=== PATIENT | female | born 2000 | race African-American/Black ===

== ENCOUNTER 2022-07-22 12:51 | Inpatient (IN) | payer MEDICAID ==
[~2022-07-22] VITALS: Ht 167.6 cm; Wt 117.9 kg
[2022-07-22] MEDS ORDERED: ACETAMINOPHEN 325MG TABLET PO ONE (16:00)
[2022-07-22] MEDS ORDERED: IBUPROFEN 600MG TABLET PO ONE (16:00)
[2022-07-22] MEDS ORDERED: CLINDAMYCIN 600 MG in DEXTROSE 5% WATER 50 ML IV ONE (18:00)
[2022-07-22 18:34] LABS: BASOPHILS % 0.7 % (0.0-2.0); EOSINOPHILS % 0.5 % (0.0-5.0); HEMOGLOBIN. 12.7 g/dL (12.0-16.0); LYMPHOCYTES % 24.3 % (20.0-50.0); MEAN CORPUSCULAR HEMOGLOBIN 27.6 pg (28.0-32.0); MEAN CORPUSCULAR VOLUME 82.7 fL (81.0-99.0); MONOCYTES % 5.8 % (2.0-8.0); NEUTROPHILS % 68.7 % (40.0-76.0); PLATELET 379 x1000/uL (130-400); RED CELL DISTRIBUTION WIDTH 14.6 % (11.6-14.6)
[2022-07-22] MEDS: CLINDAMYCIN 600MG PREMIX 50 ML IV NR ×2 (18:44→20:55)
[2022-07-22 18:45] LABS: PROTHROMBIN TIME 10.8 sec (9.6-11.0)
[2022-07-22] MEDS ORDERED: DOCUSATE SODIUM 100MG CAPSULE PO PRN (20:00)
[2022-07-22] MEDS ORDERED: MAGNESIUM/ALUMINUM HYDROXIDE/SIMETHICONE 30ML UDC PO PRN (20:00)
[2022-07-22] MEDS ORDERED: GUAIFENESIN 200MG/10ML SUGAR FREE UDC PO PRN (20:00)
[2022-07-22] MEDS ORDERED: ACETAMINOPHEN 325MG TABLET PO PRN ×2 (20:00)
[2022-07-22] MEDS ORDERED: CLONIDINE 0.1MG TABLET PO PRN (20:00)
[2022-07-22] MEDS ORDERED: IPRATROPIUM/ALBUTEROL 0.5-3(2.5)MG/3ML NEB HHN PRN (20:00)
[2022-07-22] MEDS ORDERED: ONDANSETRON HCL 4MG/2ML INJ IV PRN (20:00)
[2022-07-22] MEDS ORDERED: HYDROCODONE/ACETAMINOPHEN 5/325MG TABLET PO PRN (20:00)
[2022-07-22] MEDS ORDERED: NALOXONE HCL 0.4MG/ML VIAL IV PRN ×2 (20:15→23:45)
[2022-07-22] MEDS ORDERED: IOHEXOL-300 100 ML BOTTLE ONE (20:52)
[2022-07-22 22:23] LABS: CHLORIDE 109 mEq/L (98-107)
[2022-07-23 01:59] VITALS: BP 110/66
[2022-07-23] MEDS: HYDROCODONE/ACETAMINOPHEN 5/325MG TABLET PO PRN ×2 (04:40→13:37)
[2022-07-23 08:00] VITALS: BP 108/63
[2022-07-23] MEDS ORDERED: FAMOTIDINE 20MG TABLET PO SCH (09:00)
[2022-07-23] MEDS ORDERED: ENOXAPARIN 40MG/0.4ML SYR SUBCUT SCH (09:00)
[2022-07-23 09:26] LABS: BASOPHILS % 0.7 % (0.0-2.0); EOSINOPHILS % 0.8 % (0.0-5.0); HEMATOCRIT. 35.7 % (36.0-48.0); LYMPHOCYTES % 33.7 % (20.0-50.0); MEAN CORPUSCULAR HEMOGLOBIN 27.5 pg (28.0-32.0); MEAN CORPUSCULAR VOLUME 81.8 fL (81.0-99.0); MEAN PLATELET VOLUME 9.3 fl (7.4-10.4); MONOCYTES % 8.4 % (2.0-8.0); NEUTROPHILS % 56.4 % (40.0-76.0); PLATELET 342 x1000/uL (130-400); RED BLOOD CELL COUNT 4.36 mill/uL (4.2-5.4); RED CELL DISTRIBUTION WIDTH 14.6 % (11.6-14.6)
[2022-07-23] MEDS ORDERED: IBUPROFEN 400MG TABLET PO PRN (11:30)
[2022-07-23 12:00] VITALS: BP 116/60
[2022-07-23] MEDS ORDERED: [UNRECOGNIZED DRUG - CODE] TP (15:08)
[2022-07-23] MEDS ORDERED: DOXY100C5 MT (15:08)
[2022-07-23 17:09] VITALS: BP 116/60
[2022-07-23 19:29] LABS: *AMPHETAMINES SCREEN URINE NEGATIVE (NEGATIVE); *BARBITURATES SCREEN URINE NEGATIVE (NEGATIVE); *BENZODIAZEPINES SCREEN URINE NEGATIVE (NEGATIVE); *COCAINE SCREEN URINE NEGATIVE (NEGATIVE); CANNABINOID URINE SCREEN NEGATIVE (NEGATIVE); METHADONE URINE SCREEN NEGATIVE (NEGATIVE); OPIATES URINE SCREEN PRESUMTIVE POSITIVE (NEGATIVE); PHENCYCLIDINE URINE SCREEN NEGATIVE (NEGATIVE)
[2022-07-23 20:58] LABS: CHLORIDE 109 mEq/L (98-107)
[2022-07-23 21:28] LABS: PHOSPHORUS 2.9 mg/dL (2.5-4.9); T4 FREE 0.92 ng/dL (0.76-1.46)
[2022-07-25 08:09] LABS: HIV SCREEN 4G Non Reactive (Non Reactive)
== END 2022-07-23 17:36 | disposition home or self-care (01) | DRG 115 ==
LOC: ER 13:10 → MICUSO 19:49 → SUPCPDRO 21:49 → 6EST 07-23 00:23
PROVIDERS: ADMIT Internal Medicine; ATTEND Internal Medicine
DX: H60.11 Cellulitis of right external ear (principal); R59.0 Localized enlarged lymph nodes; Z20.822 Contact with and (suspected) exposure to COVID-19; R73.9 Hyperglycemia, unspecified; S69.90XA Unspecified injury of unspecified wrist, hand and finger(s), initial encounter; Z98.891 History of uterine scar from previous surgery; Z88.8 Allergy status to other drugs, medicaments and biological substances; X58.XXXA Exposure to other specified factors, initial encounter; Y93.89 Activity, other specified; Y92.89 Other specified places as the place of occurrence of the external cause; Y99.8 Other external cause status
CPT/HCPCS: 36415; 70481; 71045; 80053; 80305; 83036; 83735; 84100; 84439; 84443; 85025; 85651; 86592; 86593; 86780; 87070; 87389; 87426; 87430; 93005; 99285; C9803; J1650; J3490; J7060; Q9967

== ENCOUNTER 2023-12-05 12:58 | Emergency (ER) | payer MEDICAID ==
[~2023-12-05] VITALS: Ht 167.6 cm; Wt 131.0 kg
[~2023-12-05 12:58] MED LIST: DOXY100C5 MT; [UNRECOGNIZED DRUG - CODE] TP
[2023-12-05 13:09] VITALS: O2SAT 98
[2023-12-05] MEDS ORDERED: AZIT250T12 MT (14:45)
[2023-12-05] MEDS: KETOROLAC 15MG/ML VIAL IM ONE (15:00)
[2023-12-05 16:00] VITALS: BP 138/82; PULSE 83; RESP 19; TEMP 98
== END 2023-12-05 16:35 | disposition home or self-care (01) ==
LOC: ER 12:58
DX: J18.9 Pneumonia, unspecified organism (principal); Z98.890 Other specified postprocedural states
CPT/HCPCS: 81025; 71045; 96372; 99283; J1885; Z7610

== ENCOUNTER 2024-08-31 15:04 | Emergency (ER) | payer MEDICAID ==
[~2024-08-31] VITALS: Ht 172.7 cm; Wt 105.0 kg
[~2024-08-31 15:04] MED LIST changes: +AZIT250T12 MT
[2024-08-31 15:18] VITALS: O2SAT 99
[2024-08-31 19:16] LABS: BASOPHILS % 0.5 % (0.0-2.0); EOSINOPHILS % 0.6 % (0.0-5.0); HEMATOCRIT. 38.6 % (36.0-48.0); HEMOGLOBIN. 12.7 g/dL (12.0-16.0); LYMPHOCYTES % 28.3 % (20.0-50.0); MEAN CORPUSCULAR HEMOGLOBIN 28.3 pg (28.0-32.0); MEAN CORPUSCULAR HGB CONC 32.9 g/dL (31.0-37.0); MEAN CORPUSCULAR VOLUME 86.1 fL (81.0-99.0); MEAN PLATELET VOLUME 9.2 fl (7.4-10.4); MONOCYTES % 7.3 % (2.0-8.0); NEUTROPHILS % 63.3 % (40.0-76.0); PLATELET 334 x1000/uL (130-400); RED BLOOD CELL COUNT 4.48 mill/uL (4.2-5.4); RED CELL DISTRIBUTION WIDTH 14.1 % (11.6-14.6); WHITE BLOOD COUNT 6.3 x1000/uL (4.5-11.0)
[2024-08-31 19:20] LABS: CHLORIDE 107 mEq/L (98-107); POTASSIUM 3.7 mEq/L (3.5-5.1); SODIUM 142 mEq/L (136-145)
[2024-08-31 19:21] LABS: CARBON DIOXIDE 27 mEq/L (21-32)
[2024-08-31 19:22] LABS: CALCIUM 9.3 mg/dL (8.7-10.4)
[2024-08-31 19:26] LABS: CREATININE 0.9 mg/dL (0.6-1.0); GLUCOSE 93 mg/dL (70-105); UREA NITROGEN BLOOD 6 mg/dL (9-23)
[2024-08-31 19:35] LABS: B-HCG QUANTITATIVE < 1 mIU/mL (<3)
[2024-08-31 20:09] LABS: CLARITY URINE CLEAR (CLEAR); COLOR URINE YELLOW (YELLOW); GLUCOSE URINE NEGATIVE (NEGATIVE); KETONES URINE NEGATIVE (NEGATIVE); LEUKOCYTE ESTERASE URINE TRACE (NEGATIVE); NITRITE URINE NEGATIVE (NEGATIVE); OCCULT BLOOD URINE NEGATIVE (NEGATIVE); PROTEIN URINE NEGATIVE (NEGATIVE); SPECIFIC GRAVITY URINE 1.013 (1.005-1.030); UROBILINOGEN URINE 0.2 E.U./dL (0.2-1.0)
[2024-08-31 20:21] LABS: BACTERIA URINE NONE SEEN; RBC URINE 0-2 /hpf (0-2); SQUAMOUS EPITHELIAL CELL URINE RARE /lpf (RARE/1+)
[2024-08-31 21:00] VITALS: BP 113/72; PULSE 72; RESP 20; TEMP 36.83628; O2SAT 98
== END 2024-08-31 15:15 | disposition home or self-care (01) ==
LOC: ER 15:04
DX: N93.9 Abnormal uterine and vaginal bleeding, unspecified (principal); Z98.890 Other specified postprocedural states; Z91.040 Latex allergy status; Z91.018 Allergy to other foods
CPT/HCPCS: 36415; 76830; 76856; 80048; 81003; 81025; 84702; 85025; 86850; 86900; 99284

== ENCOUNTER 2025-05-18 15:27 | Emergency (ER) | payer MEDICAID ==
[~2025-05-18] VITALS: Ht 170.2 cm; Wt 114.0 kg
[2025-05-18 15:47] VITALS: O2SAT 99
[2025-05-18 15:54] VITALS: TEMP 36.9
[2025-05-18] MEDS ORDERED: ACETAMINOPHEN 500MG TABLET PO ONE (17:15)
[2025-05-18 18:47] LABS: BASOPHILS % 1.0 % (0.0-2.0); EOSINOPHILS % 1.1 % (0.0-5.0); HEMATOCRIT. 35.9 % (36.0-48.0); HEMOGLOBIN. 11.8 g/dL (12.0-16.0); LYMPHOCYTES % 36.0 % (20.0-50.0); MEAN PLATELET VOLUME 9.4 fl (7.4-10.4); MONOCYTES % 8.5 % (2.0-8.0); NEUTROPHILS % 53.4 % (40.0-76.0); PLATELET 268 x1000/uL (130-400); RED BLOOD CELL COUNT 4.26 mill/uL (4.2-5.4); RED CELL DISTRIBUTION WIDTH 14.3 % (11.6-14.6)
[2025-05-18 18:53] LABS: HCG SCREEN NEGATIVE
[2025-05-18 19:01] LABS: CREATININE 1.0 mg/dL (0.6-1.0)
[2025-05-18 19:02] LABS: UREA NITROGEN BLOOD 6 mg/dL (9-23)
[2025-05-18 19:03] LABS: ASPARTATE AMINOTRANSFERASE 15 IU/L (<34)
[2025-05-18 19:04] LABS: BILIRUBIN DIRECT < 0.1 mg/dL (<=3.0); BILIRUBIN TOTAL 0.3 mg/dL (0.1-1.0); PROTEIN TOTAL 6.4 g/dL (6.0-8.3)
[2025-05-18] MEDS: ACETAMINOPHEN 500MG TABLET PO NR (20:48)
[2025-05-18 21:01] VITALS: BP 123/75; PULSE 75; RESP 14; O2SAT 99
[2025-05-18] MEDS ORDERED: AMOX1TAB16 MT (21:04)
[2025-05-18] MEDS ORDERED: P20 MT (21:04)
[2025-05-18] MEDS ORDERED: DEXAMETHASONE 4MG TABLET PO ONE (21:15)
[2025-05-18] MEDS ORDERED: AMOXICILLIN/POTASSIUM CLAVULANATE 875/125MG TAB PO ONE (21:15)
[2025-05-18] MEDS ORDERED: IOHEXOL-300 100 ML BOTTLE ONE (23:12)
== END 2025-05-18 21:31 | disposition home or self-care (01) ==
LOC: ER 15:27 → CMPBEDREQ 05-19 07:21
DX: J03.90 Acute tonsillitis, unspecified (principal); L03.90 Cellulitis, unspecified; Z98.890 Other specified postprocedural states; Z91.040 Latex allergy status
CPT/HCPCS: 80076; 80048; 84703; 85025; 36415; 70487; 70491; 99285; Q9967; Z7610; A4606

== ENCOUNTER 2025-07-10 18:27 | Emergency (ER) | payer MEDICAID ==
[~2025-07-10] VITALS: Ht 172.7 cm; Wt 105.0 kg
[~2025-07-10 18:27] MED LIST changes: +AMOX1TAB16 MT; -AZIT250T12 MT; -DOXY100C5 MT; +P20 MT; -[UNRECOGNIZED DRUG - CODE] TP
[2025-07-10 18:35] VITALS: O2SAT 99
[2025-07-10] MEDS ORDERED: METH-653 MT (20:16)
[2025-07-10] MEDS ORDERED: LIDO700A30 TP (20:16)
[2025-07-10] MEDS ORDERED: IBUP-1455 MT (20:16)
[2025-07-10 20:35] VITALS: BP 115/77; PULSE 85; RESP 18; TEMP 37; O2SAT 99
== END 2025-07-10 20:35 | disposition home or self-care (01) ==
LOC: ER 18:27
DX: S13.4XXA Sprain of ligaments of cervical spine, initial encounter (principal); Z91.040 Latex allergy status; Z91.018 Allergy to other foods; X58.XXXA Exposure to other specified factors, initial encounter; Y93.89 Activity, other specified; Y92.89 Other specified places as the place of occurrence of the external cause; Y99.8 Other external cause status
CPT/HCPCS: 99283

== ENCOUNTER 2025-07-15 04:01 | Emergency (ER) | payer MEDICAID ==
[~2025-07-15] VITALS: Ht 167.6 cm; Wt 135.7 kg
[~2025-07-15 04:01] MED LIST changes: +IBUP-1455 MT; +LIDO700A30 TP; +METH-653 MT
[2025-07-15 04:14] VITALS: TEMP 36.7; O2SAT 99
[2025-07-15 04:23] VITALS: BP 128/84; PULSE 73; RESP 18; O2SAT 99
[2025-07-15 05:09] VITALS: TEMP 98.1
[2025-07-15] MEDS: ACETAMINOPHEN 500MG TABLET PO ONE (05:09)
== END 2025-07-15 08:00 | disposition left against medical advice (07) ==
LOC: ER 04:01
DX: B34.9 Viral infection, unspecified (principal); R51.9 Headache, unspecified; Z91.040 Latex allergy status; Z79.899 Other long term (current) drug therapy
CPT/HCPCS: 99282